=== PATIENT | female | born 1955 | race Caucasian/White ===

== ENCOUNTER 2017-06-27 10:51 | Outpatient (CLI) | payer BC | END 2017-06-27 20:05 | disposition home or self-care (01) | LOC: SMA 10:51 | PROVIDERS: ATTEND Family Medicine | DX: Z12.31 Encounter for screening mammogram for malignant neoplasm of breast (principal) | CPT/HCPCS: G0202 ==

== ENCOUNTER 2018-06-02 09:47 | Outpatient (CLI) | payer SELFPAY | END 2018-06-02 21:24 | disposition home or self-care (01) | LOC: SMA 09:47 | PROVIDERS: ATTEND Family Medicine | DX: Z12.31 Encounter for screening mammogram for malignant neoplasm of breast (principal) | CPT/HCPCS: 77067 ==

== ENCOUNTER 2019-06-03 09:07 | Outpatient (CLI) | payer OTHER | END 2019-06-03 21:08 | disposition home or self-care (01) | LOC: SMA 09:07 | PROVIDERS: ATTEND Physician Assistant Medical | DX: Z12.31 Encounter for screening mammogram for malignant neoplasm of breast (principal) | CPT/HCPCS: 77067 ==

== ENCOUNTER 2020-06-06 10:53 | Outpatient (CLI) | payer SELFPAY | END 2020-06-06 20:39 | disposition home or self-care (01) | LOC: SMA 10:53 | PROVIDERS: ATTEND Family Medicine | DX: Z12.31 Encounter for screening mammogram for malignant neoplasm of breast (principal) | CPT/HCPCS: 77067 ==

== ENCOUNTER 2021-06-21 08:39 | Outpatient (CLI) | payer BC, SELFPAY | END 2021-06-21 15:26 | disposition home or self-care (01) | LOC: SMA 08:39 | PROVIDERS: ATTEND Family Medicine | DX: Z12.31 Encounter for screening mammogram for malignant neoplasm of breast (principal) | CPT/HCPCS: 77067 ==